=== PATIENT | male | born 1960 | race Caucasian/White ===

== ENCOUNTER 2017-08-03 06:19 | Emergency (ER) | payer BC ==
--- NOTE | 2017-08-03 06:30 | EDM.PDOC ---
ED HPI GENERAL MEDICAL PROBLEM - General Chief Complaint: Back Pain or Injury Stated Complaint: back, hip, leg pain Time Seen by Provider: 08/03/17 06:30 Source of Information: Reports: Patient - History of Present Illness INITIAL COMMENTS - FREE TEXT/NARRATIVE: HISTORY AND PHYSICAL: History of present illness: [] Review of systems: As per history of present illness and below otherwise all systems reviewed and negative. Past medical history: As per history of present illness and as reviewed below otherwise noncontributory. Surgical history: As per history of present illness and as reviewed below otherwise noncontributory. Social history: No reported history of drug or alcohol abuse. Family history: As per history of present illness and as reviewed below otherwise noncontributory. Physical exam: HEENT: Atraumatic, normocephalic, pupils reactive, negative for conjunctival pallor or scleral icterus, mucous membranes moist, throat clear, neck supple, nontender, trachea midline. Lungs: Clear to auscultation, breath sounds equal bilaterally, chest nontender. Heart: S1S2, regular, negative for clicks, rubs, or JVD. Abdomen: Soft, nondistended, nontender. Negative for masses or hepatosplenomegaly. Negative for costovertebral tenderness. Pelvis: Stable nontender. Genitourinary: Deferred. Rectal: Deferred. Extremities: Atraumatic, negative for cords or calf pain. Neurovascular unremarkable. Neuro: Awake, alert, oriented. Cranial nerves II through XII unremarkable. Cerebellum unremarkable. Motor and sensory unremarkable throughout. Exam nonfocal. Diagnostics: [] Therapeutics: [] Impression: [] Plan: [] - Related Data Allergies Allergy/AdvReac Type Severity Reaction Status Date / Time No Known Allergies Allergy Verified 08/03/17 06:27 Departure - Discharge Information Referrals: Bladimir Hoskins MD [Primary Care Provider] -
[2017-08-03] MEDS ORDERED: Ketorolac 60 MG/2 ML SDV IM ONE (07:14)
[2017-08-03] MEDS ORDERED: Acetaminophen/HYDROcodone 325-5 MG Tab PO ONE (07:14)
--- NOTE | 2017-08-03 07:20 | EDM.PDOC ---
ED HPI GENERAL MEDICAL PROBLEM - General Chief Complaint: Back Pain or Injury Stated Complaint: back, hip, leg pain Time Seen by Provider: 08/03/17 06:30 - History of Present Illness INITIAL COMMENTS - FREE TEXT/NARRATIVE: HISTORY AND PHYSICAL: History of present illness: The patient is a 57-year-old male who presents with lumbar back pain more on the left side that started about a week ago after doing some lifting at home. He says he felt the pain immediately and it has persisted and he saw a provider at the walk-in clinic several days ago and got Flexeril which is not helping and he has also been using anti-inflammatories. He says that the pain is radiating to his butt and his hip but not down his leg and he has no weakness or neurosensory changes in his legs. He's had no direct trauma to his back and he has had no bowel or bladder disturbances. He has no flank pain no abdominal pain and no systemic complaints of fever chills chest pain or shortness of breath. Patient says that different positions will be worse for him and he follows at [facility] with Dr. Hoskins but says he cannot get an appointment. He has seen a chiropractor in the past but not recently and has no diagnosis of any back issues that he is aware of. Review of systems: As per history of present illness and below otherwise all systems reviewed and negative. Past medical history: As per history of present illness and as reviewed below otherwise noncontributory. Surgical history: As per history of present illness and as reviewed below otherwise noncontributory. Social history: No reported history of drug or alcohol abuse. Family history: As per history of present illness and as reviewed below otherwise noncontributory. Physical exam: General: Well-developed well-nourished man who is nontoxic and vital signs have been reviewed by me. In the room the patient moves in the bed very easily without distress. HEENT: Atraumatic, normocephalic, pupils reactive, negative for conjunctival pallor or scleral icterus, mucous membranes moist, throat clear, neck supple, nontender, trachea midline. Lungs: Clear to auscultation, breath sounds equal bilaterally, chest nontender. Heart: S1S2, regular, rate and rhythm no overt murmurs Abdomen: Soft, nondistended, nontender. Negative for masses or hepatosplenomegaly. Negative for costovertebral tenderness. Pelvis: Stable nontender. Genitourinary: Deferred. Rectal: Deferred. Extremities: Atraumatic, negative for cords or calf pain. Neurovascular unremarkable. Neuro: Awake, alert, oriented. Cranial nerves II through XII unremarkable. Cerebellum unremarkable. Motor and sensory unremarkable throughout. Exam nonfocal. Dorsi and plantar flexion are intact 5/5 inclusive of the great toe as is eversion and inversion of the feet. DTRs +2 over 4 bilaterally Back: There are no midline step-offs tenderness defects of the thoracic or lumbar spine no posterior pelvis or SI joint tenderness. There is some mild tenderness at palpation of the left buttock area but I cannot reproduce the pain exactly. Diagnostics: CT scan of the lumbar spine Therapeutics: Toradol Austin Solu-Medrol and Norflex Patient and at bedside are aware of all testing results and need for follow -up with primary care to schedule an MRI and further treatment. Patient will be given prednisone for home as well as Austin and he has Flexeril that he can also use and diclofenac. He is advised on reasons to return Impression: Bulging disks L3-L4 L4-L5 L5-S1 with sciatica Definitive disposition and diagnosis as appropriate pending reevaluation and review of above. 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 Pain Score (Numeric/FACES): 10 - Related Data Allergies Allergy/AdvReac Type Severity Reaction Status Date / Time No Known Allergies Allergy Verified 08/03/17 06:27 Home Meds: Home Meds Cyclobenzaprine [Flexeril] 10 mg PO TID 08/03/17 [History] Ibuprofen 100 mg PO TID 08/03/17 [History] Past Medical History HEENT History: Reports: None Cardiovascular History: Reports: None Respiratory History: Reports: None Gastrointestinal History: Reports: None Genitourinary History: Reports: None Musculoskeletal History: Reports: None Neurological History: Reports: None Psychiatric History: Reports: None Endocrine/Metabolic History: Reports: None Hematologic History: Reports: None Immunologic History: Reports: None Oncologic (Cancer) History: Reports: None Dermatologic History: Reports: None - Infectious Disease History Infectious Disease History: Reports: None - Past Surgical History Head Surgeries/Procedures: Reports: None Social & Family History - Family History Family Medical History: Noncontributory - Tobacco Use Smoking Status *Q: Current Every Day Smoker Years of Tobacco use: 3 Packs/Tins Daily: 1 - Caffeine Use Caffeine Use: Reports: Coffee, Tea - Recreational Drug Use Recreational Drug Use: No ED ROS GENERAL - Review of Systems Review Of Systems: ROS reveals no pertinent complaints other than HPI. ED EXAM, GENERAL - Physical Exam Exam: See Below (see dictation) Course - Vital Signs Last Recorded V/S: Last Vital Signs Temp 36.3 C 08/03/17 06:28 Pulse 78 08/03/17 06:28 Resp 18 08/03/17 06:28 BP 125/78 08/03/17 06:28 Pulse Ox 98 08/03/17 06:28 - Orders/Labs/Meds Orders: Active Orders 24 hr Category Date Time Status Lumbar Spine wo Cont [CT] Stat Exams 08/03/17 07:14 Taken Meds: Medications Discontinued Medications Generic Name Dose Route Start Last Admin Trade Name Freq PRN Reason Stop Dose Admin Hydrocodone Bitart/Acetaminophen 1 tab 08/03/17 07:14 08/03/17 07:28 Austin 325-5 Mg PO 08/03/17 07:15 1 tab ONETIME ONE Administration Ketorolac Tromethamine 60 mg 08/03/17 07:14 08/03/17 07:28 Toradol IM 08/03/17 07:15 60 mg ONETIME ONE Administration Methylprednisolone Sodium Succinate 125 mg 08/03/17 08:51 Solu-Medrol IM 08/03/17 08:52 ONETIME ONE Orphenadrine Citrate 60 mg 08/03/17 07:14 08/03/17 07:28 Norflex IM 08/03/17 07:15 60 mg ONETIME ONE Administration Departure - Departure Time of Disposition: 08:53 Disposition: Home, Self-Care 01 Condition: Good Clinical Impression: Herniated lumbar intervertebral disc - Discharge Information Referrals: Bladimir Hoskins MD [Primary Care Provider] - Forms: ED Department Discharge Additional Instructions: The following information is given to patients seen in the emergency department who are being discharged to home. This information is to outline your options for follow-up care. We provide all patients seen in our emergency department with a follow-up referral. The need for follow-up, as well as the timing and circumstances, are variable depending upon the specifics of your emergency department visit. If you don't have a primary care physician on staff, we will provide you with a referral. We always advise you to contact your personal physician following an emergency department visit to inform them of the circumstance of the visit and for follow-up with them and/or the need for any referrals to a consulting specialist. The emergency department will also refer you to a specialist when appropriate. This referral assures that you have the opportunity for followup care with a specialist. All of these measure are taken in an effort to provide you with optimal care, which includes your followup. Under all circumstances we always encourage you to contact your private physician who remains a resource for coordinating your care. When calling for followup care, please make the office aware that this follow-up is from your recent emergency room visit. If for any reason you are refused follow-up, please contact the [facility] emergency department at and ask to speak to the emergency department charge nurse. [address] [place] [address] [facility] Primary care- Internal Medicine and Family [address] Hoskins for follow-up and for probable MRI of your back in the future and further care. Use medications as prescribed today and you can also add the Flexeril and diclofenac Yorty have. Rest and do all movements slowly. Return To ER as needed and as discussed - My Orders Last 24 Hours: My Active Orders 08/03/17 07:14 Lumbar Spine wo Cont [CT] Stat - Assessment/Plan Last 24 Hours: My Active Orders 08/03/17 07:14 Lumbar Spine wo Cont [CT] Stat
[2017-08-03] MEDS ORDERED: methylPREDNISolone Sodium Succinate 125 MG/2 ML SDV IM ONE (08:51)
--- NOTE | 2017-08-03 16:52 | CT ---
EXAM DATE: 08/03/17 PATIENT'S AGE: 57 Patient: GIOVANI SHRESTHA Facility: [place], [place] Site . Site : [id number] Study: CT Spine Lumbar [id number]/29/2018 7:48:13 AM Ordering Physician: Josi Robbins Final Report: INDICATION: pain HISTORY: Low back pain. COMPARISON: None. TECHNIQUE: CT of the lumbar spine. No intravenous contrast. Coronal/sagittal reconstruction images. FINDINGS: Five lumbar type vertebral bodies are demonstrated on this exam. There is osteophytic spurring, endplate sclerosis, and disc height loss at multiple levels in the lumbar spine. The vertebral body heights are aligned. Preservation of normal lumbar lordosis. Questionable chronic fracture deformity of the left L1 transverse process on image 49, series 201. There is no lytic or blastic bone lesion identified. The findings on a level by level basis are as follows: L1-L2: The spinal canal and neural foramina are patent at this level. L2-L3: The spinal canal and neural foramina are patent at this level. L3-L4: The spinal canal and neural foramina are patent at this level. There is a posterior, broad-based disc bulge seen on sagittal reconstruction images, without evidence for effacement of the ventral thecal sac. L4-L5: Posterior, broad-based disc bulge, with no significant spinal canal or neural foraminal narrowing. L5-S1: Spinal canal and neural foramina are patent at this level. There is a posterior, broad-based disk bulge, seen better on sagittal reconstruction images. The soft tissue windows demonstrate a 3 mm stone in the left intrarenal collecting system, image 26, series 202. There is no hydronephrosis. There is no perinephric edema. No adrenal mass. No retroperitoneal adenopathy. Nonenlarged retroperitoneal lymph nodes are present. No abdominal aortic aneurysm. IMPRESSION: 1. Moderate, multilevel degenerative disc disease in the lumbar spine. 2. Posterior disc bulging at L4-5 and L5-S1. By report, there are left-sided symptoms, and compression of an exiting nerve root is suspected. MRI is suggested. 3. Nonobstructive calculus in the left intrarenal collecting system. Retroperitoneal structures are otherwise within normal limits. 4. Vertebral body heights/alignment are maintained on sagittal reconstruction images. 5. Report called to Dr. Prater, Emergency Department, 08/03/17, 0814 hours. Dictated by Brent Biswas MD @ 08/03/2017 8:16:21 AM Please note that all CT scans at this facility use dose modulation, iterative reconstruction, and/or weight-based dosing when appropriate to reduce radiation dose to as low as reasonably achievable. Dictated by: Brent Biswas MD @ 08/03/2017 08:16:31 (Electronic Signature) Report Signed by Proxy. MTDD
== END 2017-08-03 09:22 | disposition home or self-care (01) ==
LOC: MW.ED 06:19
DX: M51.26 Other intervertebral disc displacement, lumbar region (principal); F17.210 Nicotine dependence, cigarettes, uncomplicated; X50.0XXA Overexertion from strenuous movement or load, initial encounter
CPT/HCPCS: 72131; 96372; 99283; A9270; J1885; J2360; J2930

== ENCOUNTER 2017-08-06 08:53 | Emergency (ER) | payer BC ==
--- NOTE | 2017-08-06 08:57 | EDM.PDOC ---
ED HPI GENERAL MEDICAL PROBLEM - General Stated Complaint: LEG PAIN Time Seen by Provider: 08/06/17 08:54 Source of Information: Reports: Patient History Limitations: Reports: No Limitations Left Leg Pain Score (Numeric/FACES): 9 - Related Data Allergies Allergy/AdvReac Type Severity Reaction Status Date / Time No Known Allergies Allergy Verified 08/06/17 09:02 Home Meds: Home Meds Cyclobenzaprine [Flexeril] 10 mg PO TID 08/03/17 [History] Ibuprofen 100 mg PO TID 08/03/17 [History] Diclofenac Sodium [Voltaren] 75 mg PO BID 08/06/17 [History] Hydrocodone/Acetaminophen [Hydrocodon-Acetaminophen 5-325] 7.5 mg PO Q6HR PRN [History] predniSONE [Prednisone] 20 mg PO DAILY 08/06/17 [History] Past Medical History HEENT History: Reports: None Cardiovascular History: Reports: None Respiratory History: Reports: None Gastrointestinal History: Reports: None Genitourinary History: Reports: None Musculoskeletal History: Reports: None Neurological History: Reports: None Psychiatric History: Reports: None Endocrine/Metabolic History: Reports: None Hematologic History: Reports: None Immunologic History: Reports: None Oncologic (Cancer) History: Reports: None Dermatologic History: Reports: None - Infectious Disease History Infectious Disease History: Reports: None - Past Surgical History Head Surgeries/Procedures: Reports: None Social & Family History - Family History Family Medical History: Noncontributory - Caffeine Use Caffeine Use: Reports: Coffee, Tea Course - Vital Signs Last Recorded V/S: Last Vital Signs Temp 96.2 F 08/06/17 08:57 Pulse 75 08/06/17 08:57 Resp 18 08/06/17 08:57 BP 133/77 08/06/17 08:57 Pulse Ox 95 08/06/17 08:57 - Orders/Labs/Meds Meds: Medications Discontinued Medications Generic Name Dose Route Start Last Admin Trade Name Alisa PRN Reason Stop Dose Admin Ketorolac Tromethamine 60 mg 08/06/17 09:13 08/06/17 09:19 Toradol IM 08/06/17 09:14 60 mg ONETIME ONE Administration
[2017-08-06] MEDS ORDERED: Ketorolac 60 MG/2 ML SDV IM ONE (09:13)
--- NOTE | 2017-08-06 10:15 | EDM.PDOC ---
ED HPI GENERAL MEDICAL PROBLEM - General Chief Complaint: Lower Extremity Injury/Pain Stated Complaint: LEG PAIN Time Seen by Provider: 08/06/17 08:54 Source of Information: Reports: Patient History Limitations: Reports: No Limitations - History of Present Illness INITIAL COMMENTS - FREE TEXT/NARRATIVE: HISTORY AND PHYSICAL: History of present illness: Patient is a 57-year-old male who presents to the emergency room today with complaints of low back pain. His low back pain started approximately 2 weeks ago while he was lifting something heavy. He was seen through the emergency room and diagnosed with herniated disc. At that time he was prescribed [place], prednisone and Flexeril. He does have an appointment with Dr. Bladimir Hoskins for Wednesday and scheduling an MRI as an outpatient. He is here today as she feels that his pain is not improving and he would like his MRI expedited and hopefully have it done today. He denies any urinary or fecal incontinence. He is ambulatory but states that movement causes increased pain and he is unable to get comfortable while lying down. He denies any fever, chills, chest pain, shortness of breath or cough. Denies any abdominal pain, nausea, vomiting, diarrhea or constipation. No new trauma, falls or injury of his back. Review of systems: As per history of present illness and below otherwise all systems reviewed and negative. Past medical history: As per history of present illness and as reviewed below otherwise noncontributory. Surgical history: As per history of present illness and as reviewed below otherwise noncontributory. Social history: No reported history of drug or alcohol abuse. Family history: As per history of present illness and as reviewed below otherwise noncontributory. Physical exam: General: Well-developed and well-nourished 57-year-old male. Alert and oriented. Nontoxic appearing and in no acute distress. HEENT: Atraumatic, normocephalic, pupils reactive, negative for conjunctival pallor or scleral icterus, mucous membranes moist, throat clear, neck supple, nontender, trachea midline. Lungs: Clear to auscultation, breath sounds equal bilaterally, chest nontender. Heart: S1S2, regular, negative for clicks, rubs, or JVD. Abdomen: Soft, nondistended, nontender. Negative for masses or hepatosplenomegaly. Negative for costovertebral tenderness. Pelvis: Stable nontender. Genitourinary: Deferred. Rectal: Deferred. C-Spine/Back: No pinpoint vertebral tenderness upon palpation. No crepitus, step -offs or obvious deformities noted. Patient is ambulatory and able to walk on heels and toes. Denies any numbness or tingling to his distal extremities. No urinary or fecal incontinence. Extremities: Atraumatic, negative for cords or calf pain. Neurovascular unremarkable. Neuro: Awake, alert, oriented. Cranial nerves II through XII unremarkable. Cerebellum unremarkable. Motor and sensory unremarkable throughout. Exam nonfocal. Notes: On arrival patient states his pain was unbearable, he did receive Toradol IM which has brought his pain down to a 3 out of 10. He currently has [place] available to him at home but is out of his Flexeril. I will re-prescribe his Flexeril until he is able to see Dr. Bladimir Hoskins on Wednesday. Also gave a prescription for diclofenac 75 mg twice a day when necessary to continue his prednisone as he does still have 3 days left of this course. In attempt to get him an expedited appointment we were unable to get him in sooner than his already scheduled appointment for Wednesday. And are aware and will keep this appointment and return to the emergency room as necessary. Diagnostics: None Therapeutics: Toradol Impression: Low back pain Plan: 1. Please take your medications as prescribed. They may cause drowsiness so do not take it will driving her needing to be functioning outside of the house. 2. Keep your appointment with Dr. Hoskins for Wednesday to have your MRI completed. He may refill or gas appliance adjuster pain medications to keep you comfortable. 3. Follow-up with your doctor as discussed. Return to the ED as needed and as discussed. Duration: Week(s): Location: Reports: Back Left Leg Pain Score (Numeric/FACES): 9 - Related Data Allergies Allergy/AdvReac Type Severity Reaction Status Date / Time No Known Allergies Allergy Verified 08/06/17 09:02 Home Meds: Home Meds Cyclobenzaprine [Flexeril] 10 mg PO TID 08/03/17 [History] Ibuprofen 100 mg PO TID 08/03/17 [History] Diclofenac Sodium [Voltaren] 75 mg PO BID 08/06/17 [History] Hydrocodone/Acetaminophen [Hydrocodon-Acetaminophen 5-325] 7.5 mg PO Q6HR PRN [History] predniSONE [Prednisone] 20 mg PO DAILY 08/06/17 [History] Past Medical History HEENT History: Reports: None Cardiovascular History: Reports: None Respiratory History: Reports: None Gastrointestinal History: Reports: None Genitourinary History: Reports: None Musculoskeletal History: Reports: None Neurological History: Reports: None Psychiatric History: Reports: None Endocrine/Metabolic History: Reports: None Hematologic History: Reports: None Immunologic History: Reports: None Oncologic (Cancer) History: Reports: None Dermatologic History: Reports: None - Infectious Disease History Infectious Disease History: Reports: None - Past Surgical History Head Surgeries/Procedures: Reports: None Social & Family History - Family History Family Medical History: Noncontributory - Tobacco Use Smoking Status *Q: Current Every Day Smoker Years of Tobacco use: 3 Packs/Tins Daily: 1 - Caffeine Use Caffeine Use: Reports: None - Recreational Drug Use Recreational Drug Use: No Review of Systems - Review of Systems Review Of Systems: ROS reveals no pertinent complaints other than HPI. ED EXAM, GENERAL - Physical Exam Exam: See Below (See dictation) Free Text/Narrative:: HISTORY AND PHYSICAL: History of present illness: [] Review of systems: As per history of present illness and below otherwise all systems reviewed and negative. Past medical history: As per history of present illness and as reviewed below otherwise noncontributory. Surgical history: As per history of present illness and as reviewed below otherwise noncontributory. Social history: No reported history of drug or alcohol abuse. Family history: As per history of present illness and as reviewed below otherwise noncontributory. Physical exam: HEENT: Atraumatic, normocephalic, pupils reactive, negative for conjunctival pallor or scleral icterus, mucous membranes moist, throat clear, neck supple, nontender, trachea midline. Lungs: Clear to auscultation, breath sounds equal bilaterally, chest nontender. Heart: S1S2, regular, negative for clicks, rubs, or JVD. Abdomen: Soft, nondistended, nontender. Negative for masses or hepatosplenomegaly. Negative for costovertebral tenderness. Pelvis: Stable nontender. Genitourinary: Deferred. Rectal: Deferred. Extremities: Atraumatic, negative for cords or calf pain. Neurovascular unremarkable. Neuro: Awake, alert, oriented. Cranial nerves II through XII unremarkable. Cerebellum unremarkable. Motor and sensory unremarkable throughout. Exam nonfocal. Diagnostics: [] Therapeutics: [] Impression: [] Plan: [] Course - Vital Signs Last Recorded V/S: Last Vital Signs Temp 96.2 F 08/06/17 08:57 Pulse 80 08/06/17 10:28 Resp 18 08/06/17 10:28 BP 140/90 08/06/17 10:28 Pulse Ox 98 08/06/17 10:28 - Orders/Labs/Meds Meds: Medications Discontinued Medications Generic Name Dose Route Start Last Admin Trade Name Alisa PRN Reason Stop Dose Admin Ketorolac Tromethamine 60 mg 08/06/17 09:13 08/06/17 09:19 Toradol IM 08/06/17 09:14 60 mg ONETIME ONE Administration Departure - Departure Time of Disposition: 10:14 Disposition: Home, Self-Care 01 Clinical Impression: Low back pain Qualifiers: Chronicity: acute Back pain laterality: bilateral Sciatica presence: with sciatica Sciatica laterality: bilateral sciatica Qualified Code(s): M54.42 - Lumbago with sciatica, left side; M54.41 - Lumbago with sciatica, right side - Discharge Information Instructions: Back Pain, Adult, [id number] Referrals: Bladimir Hoskins MD [Primary Care Provider] - Forms: ED Department Discharge Additional Instructions: The following information is given to patients seen in the emergency department who are being discharged to home. This information is to outline your options for follow-up care. We provide all patients seen in our emergency department with a follow-up referral. The need for follow-up, as well as the timing and circumstances, are variable depending upon the specifics of your emergency department visit. If you don't have a primary care physician on staff, we will provide you with a referral. We always advise you to contact your personal physician following an emergency department visit to inform them of the circumstance of the visit and for follow-up with them and/or the need for any referrals to a consulting specialist. The emergency department will also refer you to a specialist when appropriate. This referral assures that you have the opportunity for follow-up care with a specialist. All of these measure are taken in an effort to provide you with optimal care, which includes your follow-up. Under all circumstances we always encourage you to contact your private physician who remains a resource for coordinating your care. When calling for follow-up care, please make the office aware that this follow-up is from your recent emergency room visit. If for any reason you are refused follow-up, please contact the [facility] at and asked to speak to the emergency department charge nurse. [facility] [address] [place] [id number] 1. Please take your medications as prescribed. They may cause drowsiness so do not take it will driving her needing to be functioning outside of the house. 2. Keep your appointment with Dr. Hoskins for Wednesday to have your MRI completed. He may refill or gas appliance adjuster pain medications to keep you comfortable. 3. Follow-up with your doctor as discussed. Return to the ED as needed and as discussed.
== END 2017-08-06 10:28 | disposition home or self-care (01) ==
LOC: MW.ED 08:53
DX: M54.42 Lumbago with sciatica, left side (principal); M54.41 Lumbago with sciatica, right side; F17.210 Nicotine dependence, cigarettes, uncomplicated; Z79.899 Other long term (current) drug therapy; X50.0XXA Overexertion from strenuous movement or load, initial encounter
CPT/HCPCS: 96372; 99283; J1885

== ENCOUNTER 2021-08-01 21:49 | Emergency (ER) | payer BC | END 2021-08-02 01:55 | disposition home or self-care (01) | LOC: MW.ED 21:49 | DX: U07.1 COVID-19 (principal); F17.210 Nicotine dependence, cigarettes, uncomplicated | CPT/HCPCS: 99283; U0002 ==